=== PATIENT | female | born 2000 | race African-American/Black ===

== ENCOUNTER 2020-04-26 16:37 | Observation (INO) ==
[2020-04-26 18:34] LABS: Apearance,Urine Slightly Hazy (Clear); Bilirubin,Urine Negative (Negative); Blood, Urine Negative (Negative); Glucose,Urine (UA) Negative (Negative); Ketones,Urine 5 mg/dL (Negative); Mucus,Urine Occasional /LPF (Occasional); Nitrite,Urine Negative (Negative); Protein,Urine Negative; RBC,Urine 2 /HPF (0-4); Squamous Epithelial Cell,Urine Few /HPF (0-10); Urine Color Yellow (Yellow); Urine Specific Gravity 1.048 (1.001-1.035); Urine Urobilinogen < 2.0 EU/DL (0.2-1.0); WBC,Urine 1 /HPF (0-6)
[2020-04-26] MEDS ORDERED: CLINDAMYCIN INJ 900 MG in PREMIX 1 EACH IV STA (18:38)
[2020-04-26 18:53] LABS: Basophils % 0.4 % (0.0-0.8); Eosinophils % 0.4 % (0.00-10.9); Hematocrit 38.5 VOL% (35.7-47.0); Hemoglobin 12.2 GM/DL (12.0-16.0); Immature Granulocytes % 0.4 %; Immature Granulocytes Absolute 0.03 #; Lymphocytes % 13.6 % (21.3-54.2); Mean Corpuscular HGB Conc 31.7 GM/DL (32-36); Mean Corpuscular Volume 89.7 FL (87-102); Mean Platelet Volume 9.7 FL (9.6-12.0); Monocytes % 5.1 % (1.7-12.7); Neutrophils % 80.1 % (38.7-73.9); Platelet Count 325 T/CUMM (130-400); Red Blood Count 4.29 MC/CUMM (3.8-5.5); Red Cell Distribution Width 13.6 % (9.3-17.3); White Blood Count 7.1 T/CUMM (4-12)
[2020-04-26 19:23] LABS: Albumin 3.5 G/DL (3.4-5.0); Bilirubin,Total 0.6 MG/DL (0.2-1.0); Calcium 9.3 MG/DL (8.5-10.1); Osmolality,Calculated 278.4 MOS/KG (273-304); Total Protein 7.8 G/DL (6.4-8.3)
[2020-04-26] MEDS ORDERED: GLUCAGON 1 MG VIAL IM PRN (19:50)
[2020-04-26] MEDS ORDERED: PROMETHAZINE 25 MG/1 ML VIAL IM PRN (19:50)
[2020-04-26] MEDS ORDERED: ACETAMINOPHEN 325 MG TABLET PO PRN (19:50)
[2020-04-26] MEDS ORDERED: hydrALAZINE 20 MG/1 ML VIAL IV PRN (19:50)
[2020-04-26] MEDS ORDERED: ZALEPLON 5 MG CAPSULE PO PRN (19:50)
[2020-04-26] MEDS ORDERED: guaiFENesin/DM ER 600-30 MG TABLET PO PRN (19:50)
[2020-04-26] MEDS ORDERED: MORPHINE 4 MG/1 ML VIAL IV PRN (19:50)
[2020-04-26] MEDS ORDERED: NICOTINE 21 MG/24 HR PATCH TRANSDERM PRN (19:50)
[2020-04-26] MEDS ORDERED: DEXTROSE 50% 25 GM/50 ML VIAL IV PRN (19:50)
[2020-04-26] MEDS ORDERED: diphenhydrAMINE CAP 25 MG CAPSULE PO PRN (19:50)
[2020-04-26] MEDS ORDERED: ONDANSETRON 4 MG/2 ML VIAL IV PRN (19:50)
[2020-04-26] MEDS ORDERED: LORATADINE 10 MG TABLET PO PRN (19:51)
[2020-04-26] MEDS ORDERED: amLODIPine 5 MG TABLET PO ONE (19:52)
[2020-04-26] MEDS ORDERED: CLINDAMYCIN INJ 50 ML IV ONE (20:33)
[2020-04-26] MEDS: SODIUM CHLORIDE 0.9% 1,000 ML IV SCH (20:48)
[2020-04-26] MEDS ORDERED: ENOXAPARIN 40 MG/0.4 ML SYRINGE SUBCUT SCH (21:00)
[2020-04-26] MEDS: OLOPATADINE 0.1% OPH SOLN 5 ML BOTTLE LEFT EYE SCH (22:36)
[2020-04-26] MEDS: DOCUSATE SODIUM 100 MG CAPSULE PO SCH (22:36)
[2020-04-26] MEDS: TOBRAMYCIN 0.3% OPH SOLN 5 ML BOTTLE LEFT EYE SCH (22:37)
[2020-04-26] MEDS: INSULIN LISPRO 100 UNIT/ML SUBCUT SCH (23:04)
[2020-04-27] MEDS: CLINDAMYCIN INJ 600 MG in PREMIX 1 EACH IV SCH ×3 (02:00→15:02)
[2020-04-27] MEDS: TOBRAMYCIN 0.3% OPH SOLN 5 ML BOTTLE LEFT EYE SCH ×4 (02:00→15:05)
[2020-04-27 03:49] LABS: Basophils % 0.5 % (0.0-0.8); Eosinophils # 0.1 10*3/uL (0.0-0.87); Eosinophils % 1.4 % (0.00-10.9); Hematocrit 37.5 VOL% (35.7-47.0); Hemoglobin 11.8 GM/DL (12.0-16.0); Immature Granulocytes % 0.2 %; Immature Granulocytes Absolute 0.01 #; Lymphocytes # 1.6 10*3/uL (1.4-4.0); Lymphocytes % 25.2 % (21.3-54.2); Mean Corpuscular HGB Conc 31.5 GM/DL (32-36); Mean Corpuscular Volume 88.9 FL (87-102); Mean Platelet Volume 9.3 FL (9.6-12.0); Monocytes % 9.2 % (1.7-12.7); Neutrophils % 63.5 % (38.7-73.9); Platelet Count 305 T/CUMM (130-400); Red Blood Count 4.22 MC/CUMM (3.8-5.5); Red Cell Distribution Width 13.6 % (9.3-17.3); White Blood Count 6.4 T/CUMM (4-12)
[2020-04-27 04:09] LABS: Calcium 9.5 MG/DL (8.5-10.1); Osmolality,Calculated 274.5 MOS/KG (273-304)
[2020-04-27] MEDS: SODIUM CHLORIDE 0.9% 1,000 ML IV SCH (06:45)
[2020-04-27] MEDS ORDERED: FLUTICASONE 50 MCG NASAL SPRAY 16 GM BOTTLE BOTH NARES SCH (09:00)
[2020-04-27] MEDS ORDERED: amLODIPine 5 MG TABLET PO SCH (09:00)
[2020-04-27] MEDS ORDERED: PANTOPRAZOLE 40 MG TABLET PO SCH (09:00)
[2020-04-27] MEDS: DOCUSATE SODIUM 100 MG CAPSULE PO SCH (09:31)
[2020-04-27] MEDS: OLOPATADINE 0.1% OPH SOLN 5 ML BOTTLE LEFT EYE SCH (09:32)
[2020-04-27] MEDS: INSULIN LISPRO 100 UNIT/ML SUBCUT SCH ×2 (09:39→15:32)
[2020-04-27 14:59] VITALS: BP 120/87
== END 2020-04-27 16:23 | disposition home or self-care (01) ==
LOC: N.ED 16:37 → N.EDINP 16:37 → N.5E 04-27 14:41
PROVIDERS: ADMIT Internal Medicine; ATTEND Internal Medicine